=== PATIENT | female | born 1975 | race Caucasian/White ===

== ENCOUNTER 2018-01-24 17:05 | Emergency (ER) | payer OTHER ==
[~2018-01-24] VITALS: Ht 167.6 cm; Wt 95.3 kg
[2018-01-24] MEDS ORDERED: PRILOSEC 20 MG20 MG PO (17:17)
[2018-01-24] MEDS ORDERED: ACETAMINOPHEN-1 EAC1 PO (17:58)
[2018-01-24] MEDS ORDERED: KEFLEX500 M1 PO (17:58)
[2018-01-24 18:15] VITALS: BP 139/92
== END 2018-01-24 18:17 | disposition home or self-care (01) ==
LOC: M.ERS 17:05
DX: S61.211A Laceration without foreign body of left index finger without damage to nail, initial encounter (principal); K21.9 Gastro-esophageal reflux disease without esophagitis; Z88.0 Allergy status to penicillin; W26.0XXA Contact with knife, initial encounter; Y93.89 Activity, other specified; Y92.89 Other specified places as the place of occurrence of the external cause; Y99.8 Other external cause status

== ENCOUNTER → 2019-12-23 | Outpatient (CLI) | payer OTHER ==
[~2019-12-23] MED LIST: ACETAMINOPHEN-1 EAC1 PO; KEFLEX500 M1 PO; PRILOSEC 20 MG20 MG PO
== END ==
LOC: M.RAD 15:30
PROVIDERS: ATTEND Family Medicine
DX: M47.817 Spondylosis without myelopathy or radiculopathy, lumbosacral region (principal); M48.07 Spinal stenosis, lumbosacral region; M25.551 Pain in right hip